=== PATIENT | male | born 1930 | race Caucasian/White ===

== ENCOUNTER 2017-01-29 06:56 | Inpatient (IN) | payer MEDICARE, OTHER ==
[2017-01-29] VITALS (14 sets, daily range): BP systolic 99–133; BP diastolic 60–89; PULSE 61–78; RESP 13–21; O2SAT 88–97
[~2017-01-29] VITALS: Ht 185.4 cm; Wt 103.5 kg
[2017-01-29] MEDS: Lactated Ringer's 1,000 ML IV SCH ×4 (05:00→12:21)
[2017-01-29] MEDS: Vancomycin 1 Gm/200 mL NS Premix IV SCH ×2 (06:00→07:25)
[2017-01-29] MEDS: 0.9% Sodium Chloride 1,000 ML IV SCH ×4 (06:00→21:44)
[~2017-01-29 06:56] MED LIST: ASPI-973 PO; Bupivacaine Liposome 1.3% 20 mL Inj INFILTRATE ONE; CRAN300T PO; CeFAZolin 2 Gm/50 mL D5W IV Premix IV ONE; GLUC-180 PO; METO25TA6 PO; TAMS0.4C98 PO; TRAM50TA2 PO
[2017-01-29] MEDS ORDERED: CeFAZolin Inj 2 gm / 50mL D5W IV ONE (07:14)
[2017-01-29] MEDS ORDERED: Tranexamic Acid 100 mg/mL 10 mL Inj ONE ×2 (08:49)
[2017-01-29] MEDS ORDERED: 0.9% Sodium Chloride 100 ML ONE ×2 (08:49)
[2017-01-29] MEDS ORDERED: Bupivacaine Liposome 1.3% 20 mL Inj INFILTRATE ONE (09:27)
[2017-01-29] MEDS ORDERED: 0.9% Sodium Chloride 10 mL Inj INFILTRATE ONE (09:27)
[2017-01-29] MEDS ORDERED: Bupivacaine-MPF 0.5% W/EPI 30 mL Inj INFILTRATE ONE (09:27)
[2017-01-29] MEDS ORDERED: fentaNYL-PF 50 mCg/mL 2 mL Inj IVPUSH PRN (09:30)
[2017-01-29] MEDS ORDERED: Lactated Ringer's 1,000 ML IV SCH (09:30)
[2017-01-29] MEDS ORDERED: Lactated Ringer's 500 ML IV PRN (09:30)
[2017-01-29] MEDS ORDERED: EPHEDrine Sulfate 50 mg/mL Inj IVPUSH PRN (09:30)
[2017-01-29] MEDS ORDERED: Phenylephrine 10,000 mCg/mL Inj IVPUSH PRN (09:30)
[2017-01-29] MEDS ORDERED: Labetalol 5 mg/mL 4 mL Inj IV PRN (09:30)
[2017-01-29] MEDS ORDERED: Atropine 0.4 mg/mL Inj IVPUSH PRN (09:30)
[2017-01-29] MEDS ORDERED: HYDROmorphone 1 mg/mL Inj IVPUSH PRN (09:30)
[2017-01-29] MEDS ORDERED: MetoCLOpramide 5 mg/mL 2 mL Inj IVPUSH PRN (09:30)
[2017-01-29] MEDS ORDERED: Ondansetron 2 mg/mL 2 mL Inj IVPUSH PRN (09:30)
--- NOTE | 2017-01-29 09:30 | PCM.HPANE ---
Patient Data Surgeon Admitting Provider: Attending Provider:Wagner Shaw DO Primary Care Physician:Steve Frias MD Other Provider:Red Watson Anesthesia Reason for Visit Right Knee Arthritis Ht/WT & BMI Height (Feet): 6 Height (Inches): 1.00 Weight (Kilograms): 98.3 Body Mass Index 28.00 Allergies Coded Allergies: No Known Allergies (Verified Allergy, Severe, 10/07/06) Past Anesthesia History Anesthesia History: Denies:: Anesthesia Reactions, Fam Anesthesia Reaction, Fam Malignant Hypertherm, Malignant Hyperthermia Diabetes History Hx Diabetes?: No MRSA MRSA: No Medications Blood Thinner: Aspirin Home Meds Incl Beta Dagmar: Yes (Metoprolol 12.5mg) Date Beta Dagmar Taken: Jan 29, 2017 Time Beta Dagmar Taken: 0600 Reported Medications Metoprolol Tartrate 25 Mg Lohadt67.5 Mg PO DAILY 30 Days Ref 0 01/25/17 Tramadol 50 Mg Wwmrts88 Mg PO HS PRN For Pain Ref 0 01/25/17 Tamsulosin (Flomax)0.4 Mg Capsule0.4 Mg PO DAILY Ref 0 01/25/17 Glucosamine/MSM/Chondroitin A (Glucosamine Chondroit MSM Tab)1 Each Tablet1 Each PO DAILY 01/25/17 Cranberry Extract (Cranberry)300 Mg Qdsxbw526 Mg PO DAILY 01/25/17 Aspirin 81 Mg Gfydvz14 Mg PO DAILY Ref 0 01/25/17 Discontinued Reported Medications Triamcinolone Acet (Triamcinolone Acetonide Cream)1 Applic/0.25 Gm Cr1 Applic EXT BID #60 GM Ref 0 09/19/16 Metoprolol Succinate ER 25 Mg Tab.er.24h12.5 Mg PO DAILY Ref 0 09/19/16 Tamsulosin (Flomax)0.4 Mg Capsule0.4 Mg PO DAILY Ref 0 09/19/16 Cranberry Extract (Cranberry)300 Mg Vnvqun050 Mg PO DAILY 09/19/16 Aspirin 81 Mg Rxezgf50 Mg PO DAILY Ref 0 09/19/16 Discontinued Scripts Aspirin EC 500 Mg Tablet.dr325 Mg PO DAILY DVT prophylaxis #1 BOTTLE Prov:Kin Blankenship PA-C 09/27/16 Hydrocodone-Acetaminophen 5-325 mg 1 Each Tablet1-2 Tablet PO Q4-6H PRN For Moderate Pain #80 TABLET Maximum 8 tablets per day Prov:Kin Blankenship PA-C 09/27/16 Enoxaparin Sodium 40 Mg/0.4 Ml Fzekdyw39 Mg SUBQ Q24 DVT prophylaxis #18 SYR Prov:Kin Blankenship PA-C 09/27/16 History History of ENT Problems?: No Hx of Heart Problems?: Yes Cardiovascular History: Positive for:: Abdominal Aortic Aneurism (Repair 2013) Atrial Fibrillation Irregular Heartbeat Hx of Respiratory Problem?: No Respiratory History: Denies:: Asthma COPD Emphysema Oxygen Administration Pneumonia Tuberculosis Use of C-PAP Machine Hx Neurologic Problems?: No Hx of GI Problems?: No Gastrointestinal History: Denies:: Diverticulitis Gall Bladder Disease Gastrointestinal Bleeding Heartburn Liver Disease Hx of Problems?: No Genitourinary History: Denies:: Kidney Stones Urinary Tract Infection Skin History: Positive for:: History Skin Disorders? (HAND DERMATITIS) Hx Musculoskeletal Problems?: Yes Musculoskeletal History: Positive for:: Back Injury (chronic back) Joint Replacement (left total knee, right total hip) Hx of Psycho/Social Problems?: No Hx Surgeries?: Yes (AAA RPR 2013, L TKA , SHOULDER RPR, right total hip) Hx Any Other Health Problems?: Yes Other History: Positive for:: Hospitalization Denies:: Cancer Endocrine Disease Thyroid Disease Hx Diabetes: No Hx Alcohol Use: Yes (WINE 2 GLASSES NIGHTLY)Hx Substance Use: No Smoking Status: Never Smoker Stop/Bang S-Snoring: Do You Snore Loudly: No T-Tired: feel tired, fatigued: No O-Obsered: Observed not breath: No P-Blood Pressure: treated: No B- Body Mass Index > 35 kg/m2: No A- Age over 50: Yes N- Neck Large Circumference: No G- Gender Male: Yes ABBI Total Score: 2 Risk Assessment Category Category 1A: Patient has history of documented sleep apnea, and HAS NOT received any narcotic, sedative or anesthesia administration during this stay. Category 1B: Patient has history of documented sleep apnea, and HAS received any narcotic , sedative or anesthesia administration during this stay Category 2: Patient has SUSPECTED Obstructive Sleep Apnea, and HAS received any narcotic , sedative or anesthesia administration during this stay. Category 3: Patient has SUSPECTED Obstructive Sleep Apnea and HAS NOT received narcotic, sedative or anesthesia administration during this stay. Category 4: Outpatient in Procedural Areas with known sleep apnea or who screen positive for High Risk via the STOP/BANG questionnaire. Exam Exam Vital Signs Vital Signs Date Time Temp Pulse Resp B/P Pulse Ox O2 Delivery O2 Flow Rate FiO2 01/29/17 07:52 36.1 78 16 128/65 96 Room Air General Appearance: Alert, Oriented X3, Cooperative, No Acute Distress HEENT/AIRWAY: MP 2, Neck Movement (FROM), Mouth Opening (3 FBMO) Lungs: Clear to Auscultation, Normal Air Movement Heart: Exam Unremarkable, Regular Rate/Rhythm, No Murmurs/Rubs/Gallops Meds/Labs/Diagnostics Admission Meds Current Medications Lactated Ringer's 1,000 ml @ 120 mls/hr Q8H20M IV Last administered on 07:32; Start 01/29/17 at 05:00; Stop 01/29/17 at 13:19 Vancomycin/0.9 % Sod Chloride/ Premix (Vancomycin Inj/ IV Premix) 200 ml @ 133.333 mls/hr PREOP IV Last administered on 01/29/17 07:25; Start 01/29/17 at 06:00 Plan Impression Patient chart reviewed, patient interviewed and anesthestic plan with risks, benefits, and alternatives discussed, and informed consent obtained. NPO Status: 01/28 at 1900 ASA Physical Status: ASA2 Mod Systemic Disease Anesthetic Plan: Regional Block (Right Femoral Nerve Block risks/benefits discussed and consent signed), SAB Bene/Risks/Altern/Consents: Yes HP Complete Prior to Induction: Yes Wagner Bunn MD Jan 29, 2017 07:56
[2017-01-29] MEDS ORDERED: diphenhydrAMINE 25 mg Capsule PO PRN (11:45)
[2017-01-29] MEDS ORDERED: Magnesium Hydroxide 10 mL Oral Concentration PO PRN (11:45)
[2017-01-29] MEDS ORDERED: Polyethylene Glycol (PEG) 17 Gm Powder PO PRN (11:45)
[2017-01-29] MEDS ORDERED: Acetaminophen IV 1,000 MG in IV Premix 1 EACH IV PRN (11:45)
[2017-01-29] MEDS ORDERED: Bupivacaine Liposome 1.3% 20 mL Inj ONE (11:58)
[2017-01-29 12:06] LABS: APPEARANCE,URINE HAZY (CLEAR,HAZY); COLOR,URINE YELLOW (YELLOW); OCCULT BLOOD,URINE NEGATIVE (NEGATIVE); UROBILINOGEN,URINE NORMAL (NORMAL)
--- NOTE | 2017-01-29 12:25 | DRSVH ---
PROCEDURE: X-RAY RIGHT KNEE, ONE OR TWO VIEWS ([id number]) INDICATIONS: post op TECHNIQUE: 2 view(s) of the knee acquired. COMPARISON: 12/03/2016 FINDINGS: Bones: Patient is status post knee joint arthroplasty. Hardware components are in expected position s. Visualized bony structures are intact. Soft tissues: Overlying postoperative changes are noted. IMPRESSION: Acute postoperative changes of total right knee arthroplasty Dictated by: Leonard Winters M.D. on 01/29/2017 at 12:24 Approved by: Leonard Winters M.D. on 01/29/2017 at 12:24
[2017-01-29] MEDS ORDERED: fentaNYL-PF 50 mCg/mL 2 mL Inj ONE (12:59)
[2017-01-29] MEDS ORDERED: Propofol 10,000 mCg/mL 20 mL Inj ONE (12:59)
[2017-01-29] MEDS ORDERED: Phenylephrine/NS 100 mCg/mL 10 mL Syringe IVPUSH ONE (12:59)
[2017-01-29] MEDS ORDERED: EPHEDrine/NS 5 mg/mL 5 mL Syringe ONE (12:59)
--- NOTE | 2017-01-29 13:34 | PCM.ANEP1 ---
Post Anesthesia Phase 1 PACU Phase 1 Assessment Vital Signs Vital Signs Date Time Temp Pulse Resp B/P Pulse Ox O2 Delivery O2 Flow Rate FiO2 01/29/17 13:00 36.7 73 16 133/79 95 Room Air 01/29/17 12:43 Supplement Oxygen 01/29/17 12:20 61 21 108/89 95 Nasal Cannula 2 01/29/17 12:04 65 13 117/70 96 Nasal Cannula 2 01/29/17 11:52 74 18 122/63 95 Nasal Cannula 2 01/29/17 11:45 66 19 120/65 93 Nasal Cannula 2 01/29/17 11:40 63 18 111/74 94 Nasal Cannula 2 01/29/17 11:35 72 13 116/76 95 Nasal Cannula 4 01/29/17 11:34 16 96 01/29/17 11:30 74 15 115/60 95 Nasal Cannula 4 01/29/17 11:25 68 14 99/64 95 Nasal Cannula 4 01/29/17 11:20 69 14 111/66 95 Nasal Cannula 4 01/29/17 11:16 36.6 74 21 105/63 88 Room Air 01/29/17 07:52 36.1 78 16 128/65 96 Room Air Anesthetic Administered: Regional Block (right femoral nerve block), SAB Level of Alertness: Awake, talking ROSS's with Equal Strength: No (spinal and femoral block) Pain: No Lungs: Clear to Auscultation, Normal Air Movement Dermatome Level: T10 (Umbilicus) Wagner Bunn MD Jan 29, 2017 13:34
--- NOTE | 2017-01-29 13:35 | PCM.ANEP2 ---
Post Anesthesia Evaluation ASA/CMS Post Anesthesia VS in Patient's Normal Range?: Yes Resp Stable; Airway Patent?: Yes CV Function & Hydration Stable: Yes Mental Status Recovered?: Yes Pain control Satisfactory?: Yes N/V Control Satisfactory?: Yes Wagner Bunn MD Jan 29, 2017 13:34
--- NOTE | 2017-01-29 13:46 | OP ---
[address] [address] OPERATIVE REPORT PATIENT: VERNON MONTESINOS : 1930 MR#: [id number] ADMIT: 01/29/2017 JOB ID: [id number] DATE OF SURGERY: 01/29/2017 PREOPERATIVE DIAGNOSIS(ES): Right knee degenerative joint disease. POSTOPERATIVE DIAGNOSIS(ES): Right knee degenerative joint disease. PROCEDURE: Right total knee arthroplasty. SURGEON: Wagner Shaw DO. PHYSICAL GEOGRAPHER: Nadiya Lott PA-C. INDICATIONS: The patient is an 87-year-old male with right knee severe degenerative arthritis, who has failed conservative measures and wished to proceed with a right total knee arthroplasty. We discussed risks, benefits, and possible complications of surgery. All questions were answered and he wished to proceed. A surgical attendant was required for the successful completion of this procedure. PROCEDURE IN DETAIL: The patient was brought to the operating room. He was given a preoperative antibiotic, spinal anesthetic, as well as adductor canal femoral nerve block. A preoperative time-out was performed. Preoperative antibiotic as well as 1 g TXA was given preoperatively. The right leg was sterilely prepped and draped. A tourniquet was used for hemostasis. An incision was made over the anteromedial knee longitudinally. Dissection was carefully carried through the subcutaneous tissue and electrocautery was used for hemostasis. A split was then made in the quad tendon leaving a cuff of tissue for repair along the medial aspect. This was taken along the medial retinaculum and down onto the proximal medial tibial face. A small amount of subperiosteal medial release was performed in order to gain exposure. A portion of the fat pad was removed as was a portion of the anterior horn, medial and lateral meniscus. The patella was then everted and the femur was instrumented with the intramedullary guide jonathan, and the distal femoral cut was performed with a 5-degree distal valgus cut angle and 10 mm planned resection. Next, the tibia was addressed and an extramedullary tibial cutting guide was placed parallel to the long axis of the tibia. This was pinned into position and the cut was performed just below the defect medially. The cut surface was removed. Had extensive osteophytes, and the medial and lateral menisci remnants were then removed. Next, the femur was sized, felt to be a size 8, and 5 degrees of external rotation lined up the femur nicely with the tibia. The four-in-one cutting block was placed into the incision and the distal femoral cuts were performed, completed with an osteotome. He was also noted to have a significant amount of osteophyte and bone in the posterior knee which was carefully dissected free and significantly helped with his range of motion. Following this, the knee was trialed and a box cut was performed in the femur with the box cutting guide. The knee was then trialed with the 8 femur, 7 tibia, and a 5 mm thickness poly. It was a bit tight medially and some additional medial release and removal of bone spurs on the medial aspect of the tibia was performed which balanced the knee quite nicely. Next the patella was resurfaced with a freehand-type technique, cut from initial thickness of 25 to a thickness of 14. A 41 mm patellar button was chosen, drilled for and trialed and had excellent tracking. The tibia was then drilled and punched. The femur was drilled and the bony surfaces were washed and dried. The components were then cemented into position beginning with the Depuy Attune fixed bearing 7 tibia, followed by the DePuy Attune posterior stabilized 8 femur and the 41 mm patellar button. All excess cement was removed and the knee was held in extension while the cement was allowed to polymerize. The tourniquet was then let down. Electrocautery was used for hemostasis and the final 5 mm poly was inserted. The wound was then irrigated and closed with #1 Ethibond to close the medial retinaculum and quad tendon. The patellar tendon was closed with 0-Vicryl. The subcu was closed with 2-0 Vicryl and the skin was closed with a running subcuticular 3-0 V-Loc suture. Mixture of Marcaine, saline, and Exparel was used in the posterior knee as well as deeper soft tissues, as well as in the subcu. Sterile dressings were applied. Patient tolerated the procedure well. BLOOD LOSS: 50 cc. POSTOPERATIVE PROTOCOL: Have the patient weightbear to tolerance. Use walker for ambulation. Will plan to use Lovenox for DVT prophylaxis followed by aspirin.
[2017-01-29] MEDS ORDERED: HYDROmorphone 0.5 mg/0.5 mL iSecure Syringe IVPUSH PRN (14:00)
--- NOTE | 2017-01-29 15:58 | NUR ---
Post op Pt arrived on [facility] in Bed at 1230, Gomez draining clear yellow urine, no complaints of pain or nausea, dressing C/D/I, good pulses, no feeling in lower extremities yet, will continue to monitor, see post op assessment, care continued.
[2017-01-29] MEDS ORDERED: CeFAZolin Inj 2 GM in IV Premix 1 EACH IV SCH (16:30)
[2017-01-29] MEDS: Sodium Chloride LOK Flush 10 mL Syringe IV SCH ×2 (16:37→21:56)
[2017-01-29] MEDS: CeFAZolin Inj 2 GM in IV Premix 1 EACH IV SCH (20:10)
--- NOTE | 2017-01-29 20:20 | NUR ---
Dominguez DC Pt complains of pain in urethra/bladder, suspects dominguez of leaking and requests removal. This RN finds mucus drainage at urethra, DCs dominguez and pt reports relief of pain sensation. Produced <5 ml immediately after removal, aware to call for assist and use urinal.
[2017-01-29] MEDS: Senna-Docusate 8.6-50 mg Tablet PO SCH (21:44)
[2017-01-30 00:18] VITALS: BP 125/71; PULSE 89; RESP 18; O2SAT 94
[2017-01-30] MEDS: CeFAZolin Inj 2 GM in IV Premix 1 EACH IV SCH (03:14)
[2017-01-30] MEDS: Ketorolac 15 mg/mL Inj IVPUSH PRN ×3 (03:19→21:13)
[2017-01-30 04:45] VITALS: BP 128/73; PULSE 68; RESP 16; O2SAT 95
[2017-01-30 06:20] LABS: BASOPHILS % (AUTO) 0.1 % (0-3); EOSINOPHILS % (AUTO) 0.2 % (0-5); MONOCYTES % (AUTO) 12.4 % (4-12); Mean Corpuscular Hemoglobin 30.4 pg (27.0-35.0); Mean Corpuscular Volume 89.6 fL (81-100); NEUTROPHILS % (AUTO) 74.6 % (40-74); Platelet Count 227 bil/L (150-400)
[2017-01-30] MEDS: 0.9% Sodium Chloride 1,000 ML IV SCH ×2 (07:43→17:43)
--- NOTE | 2017-01-30 08:07 | PCM.PNORTH ---
Subjective Date of Service: Jan 30, 2017 Visit Information: Reason for Visit Right Knee Arthritis Surgery/Surgery Date RTKA 01/29/17 Post-Op Day # Date of Admission: Jan 29, 2017 at 12:58 Hospital Day # Subjective Foundation awake and alert sitting up this morning. No complaints of pain at this time. The patient is in good spirits and anxious to get to the bathroom. I discussed with him the fact that he has had elective surgery and that he will discharge on or before postoperative day #3. I have encouraged patient to participated with formal physical therapy to require his best mobility and safety prior to discharge. Patient's Gomez is out and he has no wound drain. Postop General: No Complaints, No Shortness of Breath, No Chest Pain, Good Appetite Pain Management: PO, IV Push Objective Exam Objective Alert and oriented 3 and pleasant. Interoperative dressing is clean dry and intact. Calf and thigh are soft and nontender. Toe wiggle and sensation are intact at right lower extremity distally. Gomez is absent. No gait with physical therapy yet as of this time. Vital Signs and I/O Vital Sign - Last Date Time Temp Pulse Resp B/P Pulse Ox O2 Delivery O2 Flow Rate FiO2 01/30/17 04:45 36.7 68 16 128/73 95 Room Air 01/29/17 12:20 2 Intake and Output 01/29/17 01/29/17 01/30/17 Cumulative From/Thru 15:00 23:00 07:00 01/25/17 16:21 - 01/30/17 05:48 Intake Total 1920 ml 400 ml 2069 ml 4389 ml Output Total 500 ml 800 ml 570 ml 1870 ml Balance 1420 ml -400 ml 1499 ml 2519 ml Intake Oral 400 ml 400 ml 800 ml IV Total 1920 ml 1669 ml 3589 ml Output Urine Total 450 ml 800 ml 570 ml 1820 ml Estimated Blood Loss 50 ml 50 ml # Bowel Movements 0 0 Lab & Micro Results Laboratory Tests Test 01/29/17 11:27 01/30/17 05:55 Urine Color Yellow (YELLOW) Urine Appearance Hazy (CLEAR,HAZY) Urine pH 6.0 (5.0-8.0) Urine Specific [place] 1.020 (1.003-1.035) Urine Protein Negativemg/dL (NEG,TRACE) Urine Glucose (UA) Negativemg/dL (NEGATIVE) Urine Ketones Negativemg/dL (NEGATIVE) Urine Occult Blood Negative (NEGATIVE) Urine Nitrite Negative (NEGATIVE) Urine Bilirubin Negative (NEGATIVE) Urine Urobilinogen Normalmg/dL (NORMAL) Urine Leukocyte Esterase Negative (NEGATIVE) Urine RBC 0-2/hpf (0-2) Urine WBC 0-5/hpf (0-5) Urine Epithelial Cells Occasional/hpf (NONE-MOD) Urine Crystals None seen (NONE SEEN) Urine Bacteria Few/hpf (NONE-FEW) Urine Hyaline Casts None/lpf (NONE) Urine Granular Casts None seen (NONE SEEN) Urine Waxy Casts None seen (NONE SEEN) Urine Red Blood Cell Casts None seen (NONE SEEN) Urine White Blood Cell Casts None seen (NONE SEEN) Urine Mucus None seen (None Seen) Urine Trichomonas None seen (NONE SEEN) Urine Yeast None (NONE SEEN) Urinalysis Comment None Urine Culture Reflexed Not indicated White Blood Count 13.8th/mm3 (3.8-10.1) Red Blood Count 4.05mil/mm3 (4.40-5.80) Hemoglobin 12.3g/dL (13.8-17.2) Hematocrit 36.3% (41.0-50.0) Mean Corpuscular Volume 89.6fL (81-100) Mean Corpuscular Hemoglobin 30.4pg (27.0-35.0) Mean Corpuscular Hemoglobin Concent 33.9% (32.0-37.0) Red Cell Distribution Width 14.0% (12.3-15.4) Platelet Count 227bil/L (150-400) Neutrophils (%) (Auto) 74.6% (40-74) Lymphocytes (%) (Auto) 12.4% (14-46) Monocytes (%) (Auto) 12.4% (4-12) Eosinophils (%) (Auto) 0.2% (0-5) Basophils (%) (Auto) 0.1% (0-3) Sodium Level 136mEq/L (134-144) Potassium Level 4.3mEq/L (3.5-5.2) Chloride Level 103mEq/L (97-108) Carbon Dioxide Level 20mmol/L (18-29) Blood Urea Nitrogen 16mg/dL (8-27) Creatinine 0.85mg/dL (0.76-1.27) Estimat Glomerular Filtration Rate 90mL/min (>59) Glucose Level 114mg/dL (60-99) Calcium Level 8.6mg/dL (8.5-10.1) Result Diagram: 01/30/1755401/30/17554 General Appearance: Alert, Oriented X3, Cooperative, No Acute Distress Extremities: No Compartment Syndrom Noted, Thigh & Calf Soft/Nontender Postop Sensory Motor: Distal Motor Intact, Movement in Toes, Distal Sensation Intact Activity: Activity per PT, Ambulate with PT (weightbearing as tolerated on the right lower extremity using front wheeled walker.) Catheters: None Assessment & Plan Impression Patient is a very pleasant 87-year-old gentleman who is in good spirits and has undergone total joint replacement at his hip recently and is aware of the process. He is anxious to get out of bed and anticipates discharge to home. Problems: Plan Postop day #1 from right total knee arthroplasty performed on 01/29/[address] Wagner Shaw. Weightbearing as tolerated on the right lower extremity using front wheeled walker Continue formal physical therapy for mobility, gait and safety. Patient has no steps to his home and does have family at home to help him. Continue by mouth pain medication as needed and DC IV pain medication as soon as possible. Anticipate discharge on [place] [address] Shaw. Continue Lovenox 40 mg subcutaneous daily 2 weeks postop with transition to ASA 325 mg EC by mouth twice a day for an additional 4 weeks postop totaling 6 weeks postoperative DVT prophylaxis. Interoperative dressing will be changed on postop day 2. Nursing please move patient to by mouth pain medication today as soon as possible. Follow-up in 2 weeks at [facility]opedic [facility] with mid-level provider on prearranged appointment for wound check and suture removal. Follow-up in 6 weeks at [facility] orthopedic clinic with Dr. Wagner Shaw on prearranged appointment with right 2 view knee x-rays on arrival. Anticipate discharge to home with family his caregivers on her before postoperative day #3, 02/01/2017. VTE Prophylaxis: Sub-Q Enoxaparin (Lovenox 40 mg subcutaneous daily 2 weeks postop with transition to ASA 325 mg EC by mouth twice a day for an additional 4 weeks postop totaling 6 weeks postoperative DVT prophylaxis.), SCDs (left lower extremity only), DARREN Hose (bilateral thigh-high DARREN hose) Kin Blankenship PA-C Jan 30, 2017 08:07
[2017-01-30] MEDS ORDERED: CRANBERRY EXTRACT 300 MG PO SCH (08:30)
[2017-01-30] MEDS: Senna-Docusate 8.6-50 mg Tablet PO SCH ×2 (09:10→20:30)
[2017-01-30] MEDS: Sodium Chloride LOK Flush 10 mL Syringe IV SCH ×2 (09:10→17:42)
[2017-01-30 15:05] VITALS: BP 134/71; PULSE 63; RESP 17; O2SAT 96
--- NOTE | 2017-01-30 17:03 | NUR ---
Social Work-initial assessment: Data:See initial assessment. Pt is an 87 y/o male who was admitted on 01/29/17 for right knee arthritis per H&P. Pt's insurance is Medicare and [employer] and PCP is Steve Frias MD. EMR Reviewed. Pt's readmission score is not available. SW met with pt at bedside discuss discharge planning, SW role explained. Pt is alert and oriented x3. Pt resides at home with caregiver Pat in a single level home with one step to enter, Pt uses a walker at baseline and drives POV. Pt has no HH or SNF history. Pt has completed DPOA/ advanced directive and SW requested the hospital be provided with a copy. Pt has no watermaster care or VA benefits. Pt's family to provide transport home at discharge. SW provided phone number and plan on white board in room. No anticipated needs at this time. SW will continue to follow. Assessment:Pt who resides at home with caregiver. Plan:Pt to likely discharge home with no needs SW will continue to follow. NEL Zaragoza Addendum: 01/30/17 at 1710 by GREG LE SS Amended: Links added.
[2017-01-30] MEDS: HYDROcodone-APAP 7.5-325 mg Tablet PO PRN (17:42)
--- NOTE | 2017-01-30 18:31 | DRSVH ---
PROCEDURE: X-RAY RIGHT KNEE, THREE VIEWS ([id number]) INDICATIONS: looking for fracture TECHNIQUE: 3 views of the knee were acquired. COMPARISON: [facility], CR, XR KNEE 4VW RT, 08/14/2016, 10:41. [facility] , CR, XR KNEE BILATERAL STANDING UP, 12/03/2016, 8:51. [facility], CR, XR KNEE 1 OR 2VW R T, 01/29/2017, 12:02. [facility], CR, KNEE 3VW (RT), 03/02/2014, 11:44. FINDINGS: Bones: There is total right knee arthroplasty with prosthesis in anatomic alignment. There is subtle cortical irregularity in the medial aspect of the patella. Soft tissues: No joint effusion. No suspicious soft tissue calcifications. Soft tissue swelling an d subcutaneous air are probably postsurgical. IMPRESSION: 1. Subtle cortical irregularity in the medial aspect of patella. Cannot rule out small fracture. Ken mmend correlation with focal pain/tenderness. 2. Right total knee arthroplasty with prosthesis in anatomic alignment. Dictated by: Ana Garcia M.D. on 01/30/2017 at 18:25 Approved by: Ana Garcia M.D. on 01/30/2017 at 18:29
--- NOTE | 2017-01-30 19:09 | NUR ---
Impulsive /slide off bed Patient very impulsive and adamant is going to do what he wants and when he wants no matter the risk. Patient up with physical therapy is having some right knee buckling noted. Pt got up indep and slide off bed but was able to catch self before falling to ground so when I heard clanking nurse I ran in and found patient hanging off bed. I helped patient back into bed. Dr called and xray done of knee and will be read by Dr as soon as available. Pt medicated for increased pain this afternoon.
[2017-01-30 20:05] VITALS: BP 142/75; PULSE 84; RESP 18; O2SAT 97
[2017-01-31 00:16] VITALS: BP 131/71; PULSE 74; RESP 17; O2SAT 96
[2017-01-31] MEDS: Sodium Chloride LOK Flush 10 mL Syringe IV SCH ×4 (00:30→19:59)
[2017-01-31] MEDS: 0.9% Sodium Chloride 1,000 ML IV SCH ×3 (03:43→19:52)
--- NOTE | 2017-01-31 04:43 | NUR ---
Pain/Impulsive Pt is alert and oriented at start of shift, he remains resistant to use of bedside commode. Pt is educated on risks of wt bearing on leg after prior incident, on possible damages that may incur, possible fracture seen on x ray, and potential loss of function of knee- Pt up to bedside commode with walker and assit- no bm this shift. Pt remains on ela alarm. Utilizes urinal this shift. Pain managed with ice, 1x tramadol and 1x ketoralac. No chest pain, no SOB. Care continues
[2017-01-31 06:06] LABS: BASOPHILS % (AUTO) 0.3 % (0-3); EOSINOPHILS % (AUTO) 2.1 % (0-5); Mean Corpuscular Hemoglobin 29.9 pg (27.0-35.0); Mean Corpuscular Volume 89.6 fL (81-100); NEUTROPHILS % (AUTO) 70.4 % (40-74); Platelet Count 224 bil/L (150-400)
[2017-01-31 06:08] VITALS: BP 125/74; PULSE 72; RESP 17; O2SAT 96
--- NOTE | 2017-01-31 08:18 | PCM.PNORTH ---
Subjective Date of Service: Jan 31, 2017 Visit Information: Reason for Visit Right Knee Arthritis Surgery/Surgery Date RTKA 01/29/17 Post-Op Day # Date of Admission: Jan 29, 2017 at 12:58 Hospital Day # Subjective Found the patient awake and alert this morning and sitting up in bed. No complaints of pain. Patient is in good spirits and very talkative as always. I was contacted by phone by the patient's nurse and was reported to me that he had several fall. I ordered a knee x-ray referred nurse to the provider rock mason apprentice. I have discussed his fall from the bed last night and patient assures me he did not contact the floor but bumped his knee on his walker. Patient is currently off physical therapy until patient surgeon can review the imaging and clear him for continued gait training. Dr. Wagner Terrell will be contacted this morning. Postop General: No Complaints, No Shortness of Breath, No Chest Pain, Good Appetite Pain Management: PO, IV Push Objective Exam Objective Patient is alert and oriented and pleasant. Patient has undergone a fall from his bed yesterday on 01/30/2017 in the evening. Patient indicates he did not strike the floor but there is some reasonable question regarding this from nursing and physical therapy. Patient was found hanging on the side of the bed trying to get himself back into bed. Interoperative dressing is clean dry and intact. Interoperative dressing is removed and changed to a [place] style postoperative dressing. Wound is in good condition with the exception of of one small area of bleeding at the proximal aspect of the wound but there is no wound dehiscence. Toe wiggle and sensation are intact at right lower extremity distally. Calf and thigh are soft and nontender. There is mild swelling about the knee. Patient indicates no tenderness on palpation about the knee. There is no obvious hematoma or ecchymosis or contusion noted. Gomez is absent. Vital Signs and I/O Vital Sign - Last Date Time Temp Pulse Resp B/P Pulse Ox O2 Delivery O2 Flow Rate FiO2 01/31/17 06:08 36.4 72 17 125/74 96 Room Air 01/29/17 12:20 2 Intake and Output 01/30/17 01/30/17 01/31/17 Cumulative From/Thru 15:00 23:00 07:00 01/25/17 16:21 - 01/31/17 06:08 Intake Total 400 ml 100 ml 4889 ml Output Total 300 ml 650 ml 2820 ml Balance 100 ml -550 ml 2069 ml Intake Oral 400 ml 100 ml 1300 ml IV Total 3589 ml Output Urine Total 300 ml 650 ml 2770 ml Estimated Blood Loss 50 ml # Bowel Movements 1 0 1 Lab & Micro Results Laboratory Tests Test 01/31/17 05:25 White Blood Count 11.4th/mm3 (3.8-10.1) Red Blood Count 3.95mil/mm3 (4.40-5.80) Hemoglobin 11.8g/dL (13.8-17.2) Hematocrit 35.4% (41.0-50.0) Mean Corpuscular Volume 89.6fL (81-100) Mean Corpuscular Hemoglobin 29.9pg (27.0-35.0) Mean Corpuscular Hemoglobin Concent 33.3% (32.0-37.0) Red Cell Distribution Width 14.2% (12.3-15.4) Platelet Count 224bil/L (150-400) Neutrophils (%) (Auto) 70.4% (40-74) Lymphocytes (%) (Auto) 12.8% (14-46) Monocytes (%) (Auto) 14.0% (4-12) Eosinophils (%) (Auto) 2.1% (0-5) Basophils (%) (Auto) 0.3% (0-3) Sodium Level 135mEq/L (134-144) Potassium Level 4.4mEq/L (3.5-5.2) Chloride Level 101mEq/L (97-108) Carbon Dioxide Level 21mmol/L (18-29) Blood Urea Nitrogen 17mg/dL (8-27) Creatinine 0.84mg/dL (0.76-1.27) Estimat Glomerular Filtration Rate 92mL/min (>59) Glucose Level 117mg/dL (60-99) Calcium Level 8.5mg/dL (8.5-10.1) Result Diagram: 01/31/1752401/31/17524 General Appearance: Alert, Oriented X3, Cooperative (patient is generally cooperative but has had episodes of belligerence and resistance to direction regarding not performing gait without assistance.), No Acute Distress Extremities: No Compartment Syndrom Noted, Thigh & Calf Soft/Nontender Postop Sensory Motor: Distal Motor Intact, Movement in Toes, Distal Sensation Intact Activity: Activity per PT, Ambulate with PT (weightbearing as tolerated on the right lower extremity using front wheeled walker.) Catheters: None Assessment & Plan Impression Patient is an 87-year-old male who was undergone an elective right total knee arthroplasty performed on 01/29/[address] Wagner Shaw. Patient is somewhat impulsive regarding his mobility and is generally very present but can be quite forceful regarding traveling to the bathroom as needed. Problems: Plan Postop day #2 from right total knee arthroplasty performed on 01/29/[address] Wagner Shaw. Patient has suffered a fall from his bed at approximately 6 PM on 01/30/2017. Patient was attempting to arise from bed and go to the bathroom on his own after numerous previous cautioning not to perform this activity. A loud noise was hurt in his room and when physical therapy and nursing entered the room found patient pain onto the edge of the bed and attempting to move himself back into bed. Patient indicated he does not strike his knee on the floor but on his walker. There was a small area of bleeding approximately 2-3 cm in diameter at the proximal aspect of his wound but there is no wound dehiscence. There is mild swelling about the knee. Patient indicates no tenderness on palpation about the knee. There is no obvious hematoma or ecchymosis or contusion noted. Dr. Wagner Shaw will be notified. An x-ray was ordered of the knee on 01/30/2017. A CT of the right knee will be ordered today on 2016. Dr. Shaw has been notified and reviewed x-rays obtained on 01/29/2017 and 01/30. His direction at this time is to place patient on partial weightbearing for 1 day and reevaluate and if he is doing well then move him to weightbearing as tolerated. This decision was made in the late evening of 01/31/2017 and will be implemented on 02/01/2017. Hold weightbearing as tolerated on the right lower extremity using front wheeled walker until further notice Hold formal physical therapy until further notice. Patient has no steps to his home and does have family at home to help him. Continue by mouth pain medication as needed and DC IV pain medication as soon as possible. Anticipate discharge on [place] 7[address] Shaw. Continue Lovenox 40 mg subcutaneous daily 2 weeks postop with transition to ASA 325 mg EC by mouth twice a day for an additional 4 weeks postop totaling 6 weeks postoperative DVT prophylaxis. Maintain patient in bed with no gait until further notice. Interoperative dressing is clean dry and intact and is removed this morning and replaced with an ABD and fishnet dressing. Nursing please remove patient off of IV pain medication and on to by mouth pain meds as soon as possible today on postop day 2. Follow-up in 2 weeks at [facility] orthopedic clinic with mid-level provider on prearranged appointment for wound check and suture removal. Follow-up in 6 weeks at [facility] orthopedic clinic with Dr. Wagner Shaw on prearranged appointment with right 2 view knee x-rays on arrival. Anticipate discharge to home with family his caregivers on her before postoperative day #3, 02/01/2017.. VTE Prophylaxis: Sub-Q Enoxaparin (Lovenox 40 mg subcutaneous daily 2 weeks postop with transition to ASA 325 mg EC by mouth twice a day for an additional 4 weeks postop totaling 6 weeks postoperative DVT prophylaxis.), SCDs (left lower extremity only), DARREN Hose (bilateral thigh-high DARREN hose) Kin Blankenship PA-C Jan 31, 2017 08:18
[2017-01-31] MEDS: Senna-Docusate 8.6-50 mg Tablet PO SCH ×2 (08:30→20:30)
--- NOTE | 2017-01-31 12:22 | NUR ---
Off Unit Pt off unit to CT for left knee imaging - transported via bed at 1215. Pt A&Ox3, ROSS, IV SL, denying need for pain medication, Chart with pt. Return to unit at 1222. Care continues.
--- NOTE | 2017-01-31 13:07 | DRSVH ---
PROCEDURE: CT KNEE RIGHT W/O CONTRAST (99670) INDICATIONS: fall from bed while in hospital TECHNIQUE: Noncontrast 1-1.5 mm axial sections acquired from the mid-patella to the proximal tibia, with coronal and sagittal reformats. COMPARISON: [facility], CR, XR KNEE 1 OR 2VW RT, 01/29/2017, 12:02. [facility], CR, XR KNEE 3VW RT, 01/30/2017, 17:56. FINDINGS: Image quality: Excellent. Bones: Post surgical changes related to cemented right total knee arthroplasty. No definite fracture identified. The hardware appears intact. There is expected postoperative alignment. No evidence of se paration of hardware from bone. The lucency seen on the recent comparison radiograph dated 01/30/17 inv olving the anterior aspect of the distal femur probably represents positional artifact due to slight rotation of femur relative to the prior radiograph dated 01/29/17. This is also suspected due to the ap pearance of the cement interface (variable between the two studies). There are scattered bulky osteop hytes. Soft tissues: Scattered vascular calcifications and recent postoperative changes including joint effu analisa. There is a 1 cm loose body posterior to the distal femur metaphysis as before. IMPRESSION: No fracture or evidence of hardware failure. Postoperative changes related to recent right total knee arthroplasty. Dictated by: Gary Cummings M.D. on 01/31/2017 at 12:53 Approved by: Gary Cummings M.D. on 01/31/2017 at 13:05
[2017-01-31] MEDS: HYDROcodone-APAP 7.5-325 mg Tablet PO PRN (14:50)
[2017-01-31 15:58] VITALS: BP 138/88; PULSE 91; RESP 18; O2SAT 97
[2017-01-31 19:34] VITALS: BP 109/67; PULSE 99; RESP 20; O2SAT 99
[2017-02-01 04:08] VITALS: BP 139/82; PULSE 94; RESP 20; O2SAT 97
[2017-02-01] MEDS: HYDROcodone-APAP 7.5-325 mg Tablet PO PRN (04:14)
--- NOTE | 2017-02-01 07:45 | NUR ---
Pain pt reports his pain is well controlled. he took [place] once this shift. he has been able to get up to the BSC with 1 PA and fww. has no complaints at this time. care continues.
[2017-02-01 08:10] VITALS: BP 119/72; PULSE 99; RESP 18; O2SAT 98
--- NOTE | 2017-02-01 08:20 | PCM.PNORTH ---
Subjective Date of Service: Feb 01, 2017 Visit Information: Reason for Visit Right Knee Arthritis Surgery/Surgery Date RTKA 01/29/17 Post-Op Day # Date of Admission: Jan 29, 2017 at 12:58 Hospital Day # Subjective [place] patient's sleeping and easily awakened. No complaints of pain at this time. Patient is eliminating well at this time. He indicates that he is anxious to begin walking again and I have discussed with him that we will start him on partial weightbearing today and see how he does with his knee. He indicates that his knee is fine and he does not feel any problem with it at this point. Patient also indicates he was standing up in his room this morning when he awakened without assistance on hand. I have met patient and his daughter in the room this morning and discussed with both of them that he must be careful in his mobility until he is in full control of his right knee. I have stressed the fact that he must not be impetuous regarding going to the bathroom or any other activities that would cause him to walk without a caregiver on hand for the time being. Patient could be discharged today if he is walking well and receives clearance from physical therapy. Postop General: No Complaints, No Shortness of Breath, No Chest Pain, Good Appetite Pain Management: PO Objective Exam Objective Alert and oriented 3 and pleasant. Postoperative dressings clean dry and intact. Calf and thigh are soft and nontender. Knee and calf area or moderately swollen. Toe wiggle and sensation are intact at right lower extremity distally. Gomez is absent No gait pursued yesterday on 01/31/2017 by direction of orthopedics secondary to fall suffered while exiting his bed on 01/30/2017. X-ray Imaging obtained on 01/29/2017 postoperatively and 01/30/2017 post ground level fall as well as CT of the right knee obtained on 01/31/2017 are reviewed by radiology and no fracture or displacement of the patient's right knee prosthetic components is noted. Vital Signs and I/O Vital Sign - Last Date Time Temp Pulse Resp B/P Pulse Ox O2 Delivery O2 Flow Rate FiO2 02/01/17 04:08 36.6 94 20 139/82 97 Room Air 01/29/17 12:20 2 Intake and Output 01/31/17 01/31/17 02/01/17 Cumulative From/Thru 15:00 23:00 07:00 01/25/17 16:21 - 02/01/17 06:31 Intake Total 800 ml 400 ml 6089 ml Output Total 1300 ml 500 ml 4620 ml Balance -500 ml -100 ml 1469 ml Intake Oral 800 ml 400 ml 2500 ml IV Total 3589 ml Output Urine Total 1300 ml 500 ml 4570 ml Estimated Blood Loss 50 ml # Bowel Movements 1 2 Result Diagram: 01/31/17 0525 01/31/17 0525 General Appearance: Alert, Oriented X3, Cooperative (patient is cooperative in agreement to manage his mobility as directed but does forget where he has agreed to and pursues ambulation without assistance.), No Acute Distress Extremities: No Compartment Syndrom Noted, Thigh & Calf Soft/Nontender (there is swelling at the right leg in the knee and calf area.) Postop Sensory Motor: Distal Motor Intact, Movement in Toes, Distal Sensation Intact Activity: Activity per PT, Ambulate with PT (weightbearing as tolerated on the right lower extremity using front wheeled walker.) Catheters: None Assessment & Plan Plan Postop day #3 from right total knee arthroplasty performed on 01/29/[address] Wagner Shaw. Patient has suffered a fall from his bed at approximately 6 PM on 01/30/2017. Patient was attempting to arise from bed and go to the bathroom on his own after numerous previous cautioning not to perform this activity. A loud noise was hurt in his room and when physical therapy and nursing entered the room found patient pain onto the edge of the bed and attempting to move himself back into bed. Patient indicated he does not strike his knee on the floor but on his walker. There was a small area of bleeding approximately 2-3 cm in diameter at the proximal aspect of his wound but there is no wound dehiscence. There is mild swelling about the knee. Patient indicates no tenderness on palpation about the knee. There is no obvious hematoma or ecchymosis or contusion noted. An x-ray was ordered of the knee on 01/30/[address] was obtained on 2016 of the right knee these are both reviewed by radiology and no bony fracture or displacement of the prosthetic components is noted.. Dr. Shaw has been notified and reviewed x-rays obtained on 01/29/2017 and 01/30. His direction at this time is to place patient on partial weightbearing for 1 day and reevaluate and if he is doing well then move him to weightbearing as tolerated. This decision was made in the late evening of 01/31/2017 and will be implemented on 02/01/2017. Partial weightbearing only on the right lower extremity using frontwheel walker and up with assist only. Continue formal physical therapy for mobility, gait and safety. Physical therapy will contact me regarding patient's progress and we will consider advancement of his weightbearing if this is supported by patient's performance. Continue by mouth pain medication as needed. Anticipate discharge on [place] [address] Shaw. Continue Lovenox 40 mg subcutaneous daily 2 weeks postop with transition to ASA 325 mg EC by mouth twice a day for an additional 4 weeks postop totaling 6 weeks postoperative DVT prophylaxis. Bilateral thigh-high DARREN hose in place. SCDs not in use at this time. Follow-up in 2 weeks at [facility] orthopedic clinic with mid-level provider on prearranged appointment for wound check and suture removal. Follow-up in 6 weeks at [facility] orthopedic clinic with Dr. Wagner Shaw on prearranged appointment with right 2 view knee x-rays on arrival. Anticipate discharge to home with family his caregivers on postop day #3 or #4 when patient is determined to be safe and his mobility secured. VTE Prophylaxis: Sub-Q Enoxaparin (Lovenox 40 mg subcutaneous daily 2 weeks postop with transition to ASA 325 mg EC by mouth twice a day for an additional 4 weeks postop totaling 6 weeks postoperative DVT prophylaxis.), SCDs (left lower extremity only), DARREN Hose (bilateral thigh-high DARREN hose) Kin Blankenship PA-C Feb 01, 2017 08:19
[2017-02-01] MEDS: Senna-Docusate 8.6-50 mg Tablet PO SCH (08:30)
[2017-02-01] MEDS: Sodium Chloride LOK Flush 10 mL Syringe IV SCH (08:31)
[2017-02-01] MEDS: 0.9% Sodium Chloride 1,000 ML IV SCH (09:43)
--- NOTE | 2017-02-01 14:09 | NUR ---
Evaluation completed. Please go to "Notes" then click on "Assessments and Notes" (bottom left corner of screen). Then select appropriate discipline tab on top of screen.
--- NOTE | 2017-02-01 15:06 | PCM.DIORTH ---
Ortho Discharge Instruction Date of Service: Feb 01, 2017 Dates of Hospitalization Date of Hospital Admission Jan 29, 2017 at 12:58 Providers Admitting Physician: Wagner Shaw DO Primary Care Physician: Steve Frias MD Attending Physician: Wagner Shaw DO Diet Discharge Diet: No restrictions Activity Discharge Activity-General: Try not to overdue, Balance rest and activity, Ice incision 3-5 time/day for 20min, Activity as pain allows, Activity as energy allows, No driving while taking narcotic Right Lower Extremity: Weight Bearing as tolerated Discharge Assist Device: Front Wheeled Walker Dressing and Incisional Care Discharge Dressing Care: Keep dressing clean, dry & intact, Change soiled dressing Discharge Hygiene: May shower after (patient may shower after 3-4 days postoperatively if wound and dressing have been dry for 24 hours.), DO NOT soak incision under water, NO bathtub, hot tub or whirlpool Additional Instructions Discharge Instructions Postop day #3 from right total knee arthroplasty performed on 01/29/[address] Wagner Shaw. Patient has suffered a fall from his bed at approximately 6 PM on 01/30/2017. Patient was attempting to arise from bed and go to the bathroom on his own after numerous previous cautioning not to perform this activity. A loud noise was hurt in his room and when physical therapy and nursing entered the room found patient pain onto the edge of the bed and attempting to move himself back into bed. Patient indicated he does not strike his knee on the floor but on his walker. There was a small area of bleeding approximately 2-3 cm in diameter at the proximal aspect of his wound but there is no wound dehiscence. There is mild swelling about the knee. Patient indicates no tenderness on palpation about the knee. There is no obvious hematoma or ecchymosis or contusion noted. An x-ray was ordered of the knee on 01/30/[address] was obtained on 2016 of the right knee these are both reviewed by radiology and no bony fracture or displacement of the prosthetic components is noted.. . Patient has worked well with formal physical therapy today and Dr. Shaw has been informed as cleared patient for discharge today on 02/01/2017 with physical therapy's recommendation for discharge to home. Weightbearing as tolerated on the right lower extremity using frontwheel walker and assist. Continue formal physical therapy for mobility, gait and safety. Continue by mouth pain medication as needed. Anticipate discharge on [place] [address] Shaw. Continue Lovenox 40 mg subcutaneous daily 2 weeks postop with transition to ASA 325 mg EC by mouth twice a day for an additional 4 weeks postop totaling 6 weeks postoperative DVT prophylaxis. Keep dressing clean dry and intact. Change dressing as needed when it becomes soiled. Ice and elevate the wound as needed for pain control. Patient may shower in 3-4 days postop if wound and overlying dressing remained clean and dry and free of blood for 24 hours. Continue bilateral thigh-high DARREN hose for DVT prophylaxis Follow-up in 2 weeks at [facility] orthopedic clinic with mid-level provider on prearranged appointment for wound check and suture removal. Follow-up in 6 weeks at [facility] orthopedic clinic with Dr. Wagner Shaw on prearranged appointment with right 2 view knee x-rays on arrival. Discharge patient to home today with family as caregivers on postoperative day # 3, 02/01/2017. Follow Up Plan Follow Up Plan Patient will be seen at 2 weeks, 6 weeks and 12 weeks postoperatively. Patient will be seen when necessary in the interim. Follow-up Provider (F9): Wagner Shaw DO Follow-up appointment: Weeks (Patient will be seen at 2 weeks, 6 weeks and 12 weeks postoperatively. Patient will be seen when necessary in the interim.) Call your provider for: Fever, Chills, Shortness of breath, Vomitting, Drainage at incision Kin Blankenship PA-C Feb 01, 2017 15:06
[2017-02-01] MEDS ORDERED: Hydrocodone/Acetaminophen PO (15:09)
[2017-02-01] MEDS ORDERED: ENOX40DI8 SUBQ (15:09)
--- NOTE | 2017-02-01 15:13 | PCM.DC.ORT ---
Discharge Summary Date of Service: Feb 01, 2017 Date of Hospital Admission: Jan 29, 2017 at 12:58 Date of Surgery: Jan 29, 2017 Date of Discharge: Feb 01, 2017 Reason for Hospitalization: Severe right knee osteoarthritis Procedures Performed: Right total knee arthroplasty Hospital Course: Patient was admitted to the preoperative care unit on 01/29/2017 and upon processing was taken to the operating room where his procedure was performed without incident. Upon awakening from anesthesia patient was taken to the postoperative care unit and upon recovery from anesthesia he was transferred to the orthopedic care for where he participated with formal physical therapy. On 01/30/2017 patient suffered a ground-level fall at the edge of his bed while unassisted suffering some impact about his right knee from an unknown source. X -rays were taken at that time as well as CT scan the next day and postop x-rays post ground-level fall x-rays and CT were compared and radiologists as well as 2 of our orthopedic surgeons had determined that there was no fracture and no displacement or damage to his new total knee components. He was subsequently cleared to participate fully with formal physical therapy and achieved a recommendation for discharge to home on 02/01/2017. Problems: (1) Right knee DJD Status: Acute ICD Code: M17.9 Disposition: Discharge to home with family's caregivers Orthopedic Follow up Plan: In Two Weeks in my clinic (Patient will be seen at 2 weeks, 6 weeks and 12 weeks postoperatively. Patient will be seen when necessary in the interim.) Discharge Instructions: Postop day #3 from right total knee arthroplasty performed on 01/29/[address] Wagner Shaw. Patient has suffered a fall from his bed at approximately 6 PM on 01/30/2017. Patient was attempting to arise from bed and go to the bathroom on his own after numerous previous cautioning not to perform this activity. A loud noise was hurt in his room and when physical therapy and nursing entered the room found patient pain onto the edge of the bed and attempting to move himself back into bed. Patient indicated he does not strike his knee on the floor but on his walker. There was a small area of bleeding approximately 2-3 cm in diameter at the proximal aspect of his wound but there is no wound dehiscence. There is mild swelling about the knee. Patient indicates no tenderness on palpation about the knee. There is no obvious hematoma or ecchymosis or contusion noted. An x-ray was ordered of the knee on 01/30/[address] was obtained on 2016 of the right knee these are both reviewed by radiology and no bony fracture or displacement of the prosthetic components is noted.. . Patient has worked well with formal physical therapy today and Dr. Shaw has been informed as cleared patient for discharge today on 02/01/2017 with physical therapy's recommendation for discharge to home. Weightbearing as tolerated on the right lower extremity using frontwheel walker and assist. Continue formal physical therapy for mobility, gait and safety. Continue by mouth pain medication as needed. Anticipate discharge on [place] [address] Shaw. Continue Lovenox 40 mg subcutaneous daily 2 weeks postop with transition to ASA 325 mg EC by mouth twice a day for an additional 4 weeks postop totaling 6 weeks postoperative DVT prophylaxis. Keep dressing clean dry and intact. Change dressing as needed when it becomes soiled. Ice and elevate the wound as needed for pain control. Patient may shower in 3-4 days postop if wound and overlying dressing remained clean and dry and free of blood for 24 hours. Continue bilateral thigh-high DARREN hose for DVT prophylaxis Follow-up in 2 weeks at [facility] orthopedic clinic with mid-level provider on prearranged appointment for wound check and suture removal. Follow-up in 6 weeks at [facility] orthopedic clinic with Dr. Wagner Shaw on prearranged appointment with right 2 view knee x-rays on arrival. Discharge patient to home today with family as caregivers on postoperative day # 3, 02/01/2017. Management Plan: Patient will be seen at 2 weeks, 6 weeks and 12 weeks postoperatively. Patient will be seen when necessary in the interim. ([Hydrocodone/Acetaminophen]) 1 TABLET TABLET 1-2 TABLET PO Q4-6H PRN PRN For Moderate Pain Cranberry Extract (Cranberry) 300 Mg Tablet 300 MG PO DAILY Enoxaparin Sodium (Enoxaparin Sodium) 40 Mg/0.4 Ml Syringe 40 MG SUBQ Q24 Metoprolol Tartrate (Metoprolol Tartrate) 25 Mg Tablet 12.5 MG PO DAILY Tamsulosin (Flomax) 0.4 Mg Capsule 0.4 MG PO DAILY Kin Blankenship PA-C Feb 01, 2017 15:13
--- NOTE | 2017-02-01 16:29 | NUR ---
Social Work-Readiness for Discharge/Discharge Data:EMR reviewed. Pt is on day 3 of hospitalization for right knee arthritis per H&P. Pt is nearing discharge. PT has seen pt and is recommending home with outpt PT. 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 Pt to discharge home with caregiver via POV. No other discharge needs. Assessment:Pt who resides at home with caregiver. Plan:Pt to discharge home with caregiver via POV. Pt to discharge home with caregiver via POV. No other discharge needs identified. Leanne Britton MSW
--- NOTE | 2017-02-01 17:43 | NUR ---
Discharge Pt discharged to home with friend via private vehicle at 1730 hrs. PIV removed intact. VSS. Pain controlled. Discharge and follow up instructions given to pt and he expressed understanding. All personal possessions sent with pt.
== END 2017-02-01 17:30 | disposition home or self-care (01) | DRG 470 ==
LOC: SAS 06:56 → OSC 12:58
PROVIDERS: ADMIT Orthopaedic Surgery; ATTEND Orthopaedic Surgery
PROC: 0SRC0J9 Replacement of Right Knee Joint with Synthetic Substitute, Cemented, Open Approach (ICD-10-PCS; principal; 2017-01-29 09:15)
DX: M17.11 Unilateral primary osteoarthritis, right knee (principal); I48.91 Unspecified atrial fibrillation; Z96.652 Presence of left artificial knee joint; T14.90 Injury, unspecified; W08.XXXA Fall from other furniture, initial encounter; Y93.89 Activity, other specified; Y92.230 Patient room in hospital as the place of occurrence of the external cause